=== PATIENT | male | born 1985 | race Caucasian/White ===

== ENCOUNTER → 2021-06-06 12:57 | Outpatient (CLI) | payer OTHER, SELFPAY ==
--- NOTE | 2021-06-06 13:40 | RAD_ITS ---
EXAM DESCRIPTION: PA and lateral CHEST CLINICAL HISTORY: 36 years Male, SOB SOB COMPARISON: None FINDINGS: The thorax is intact. The heart and mediastinum appear to be within normal limits. The lungs appear to be well areated without evidence of pneumonic consolidation or pleural effusion. RAD/Chest PA and Lateral IMPRESSION: Normal chest. Electronically Signed: Otoniel Hutchinson DO at 10:45 EDT Tel , Service support ,
--- NOTE | 2021-06-06 14:52 | PFTCOMP ---
COMPLETE PULMONARY FUNCTION TEST INTERPRETATION Brief HPI: Patient is a 36 year old male, currently under the care of Dr. Coyne, who presents to [facility] for complete pulmonary function tests secondary to diagnosis of dyspnea. Respiratory therapist reports good effort and reproducible results. Interpretation: Forced expiration spirometry shows a moderately severe large airways obstructive ventilatory defect with an FEV1 of 57% predicted. There is a significant bronchodilator response in FVC and FEV1 by strict ATS criteria. Spirograms are of good quality and plateau slowly, indicating slowly emptying areas of the lungs. The respiratory flow volume loop shows decreased expiratory flow rates at all lung volumes consistent with airway obstruction. Lung volumes by body plethysmography show a decreased total lung capacity at 4.6 L, 73% predicted. FRC and RV are elevated out of proportion. Lung volume measurements are consistent with air-trapping. Diffusion capacity by carbon monoxide is decreased at 50% predicted. The airway resistance is normal. No previous pulmonary function tests were available for review. Impression: Partially reversible moderately severe mixed ventilatory defect with a symmetric reduction in diffusing capacity
== END ==
DX: R06.02 Shortness of breath (principal)
CPT/HCPCS: 71046; 94060; 94726; 94729